=== PATIENT | female | born 1985 | race Caucasian/White ===

== ENCOUNTER → 2017-02-12 | Day surgery (SDC) | payer OTHER ==
[~2017-02-12] VITALS: Ht 157.5 cm; Wt 74.8 kg
== END | disposition home or self-care (01) ==
LOC: FAS 08:00
DX: M23.211 Derangement of anterior horn of medial meniscus due to old tear or injury, right knee (principal); M79.4 Hypertrophy of (infrapatellar) fat pad; M25.861 Other specified joint disorders, right knee; M67.51 Plica syndrome, right knee; Z90.49 Acquired absence of other specified parts of digestive tract; Z98.51 Tubal ligation status
CPT/HCPCS: 84703; J1100; J1170; J1885; J2405; J2704; J3010

== ENCOUNTER 2021-11-05 17:24 | Emergency (ER) | payer OTHER ==
[2021-11-05 18:15] LABS: BASOPHIL 0.4 % (0-2); EOSINOPHIL 0.3 % (0-5); HCT 42.7 % (37.0-47.0); HGB 14.2 g/dl (12.5-16.0); LYMPHOCYTE 14.9 % (15-48); MCH 28.2 pg (25.0-31.0); MCHC 33.3 g/dL (32.0-36.0); MCV 84.7 fL (78.0-100.0); MONOCYTE 4.2 % (0-12); MPV 9.2 fL (6.0-9.5); NEUTROPHIL 79.7 % (41-80); NRBC 0; PLT 245 K/uL (150-400); RBC 5.04 M/uL (4.20-5.40); WBC 15.5 K/uL (4.0-10.5)
[2021-11-05 18:32] LABS: BUN/CREAT RATIO (CALC) 20.3 RATIO; CREATININE 0.64 mg/dL (0.51-0.95); POTASSIUM 3.5 mmol/L (3.5-5.1)
[2021-11-05 20:21] LABS: BILIRUBIN NEGATIVE (NEGATIVE); BLOOD 2+ Ery/uL (NEGATIVE); CLARITY CLEAR (CLEAR); COLOR YELLOW (YELLOW); GLUCOSE (U) NORMAL (NORMAL); LEUKOCYTES NEGATIVE Leu/uL (NEGATIVE); NITRITE NEGATIVE (NEGATIVE); PROTEIN NEGATIVE (NEGATIVE); UROBILINOGEN 0.2 mg/dL (0.2-1.0)
[2021-11-05 20:37] LABS: BACTERIA TRACE; URINARY RBC RARE; URINARY WBC RARE
[2021-11-05] MEDS ORDERED: MEDROL 4MG DOSEP4 MG PO (21:47)
[2021-11-05] MEDS ORDERED: NORCO 5-325 TA1 EACH PO (21:47)
[2021-11-05] MEDS ORDERED: CYCLOBENZAPRINE10 MG PO (21:47)
== END 2021-11-05 22:02 | disposition home or self-care (01) ==
LOC: FER 17:24
PROVIDERS: Nurse Practitioner Family
DX: R10.32 Left lower quadrant pain (principal); M54.9 Dorsalgia, unspecified
CPT/HCPCS: 36415; 80048; 81001; 85025; J1885; J7030